=== PATIENT | female | born 1975 | race Caucasian/White ===

== ENCOUNTER → 2017-06-28 | Outpatient (CLI) | payer BC ==
--- NOTE | 2017-06-28 14:06 | US ---
EXAMINATION TYPE: US thyroid st tissue head/neck DATE OF EXAM: 06/28/2017 COMPARISON: US July 28, 2016 CLINICAL HISTORY: E04.1 THYROID NODULE. GLAND SIZE: Right Lobe: 4.2 x 1.0 x 1.2 cm Overall Parenchyma: homogenous Left Lobe: 3.5 x 1.2 x 1.1 cm Overall Parenchyma: homogeneous Isthmus Thickness: 0.3 cm NODULES RIGHT: no nodules seen LEFT: no nodules seen ISTHMUS: no nodules seen Bilateral neck scanned, no evidence of lymphadenopathy. Thyroid gland remains somewhat small in size and homogeneous in appearance without discrete nodule id entified. IMPRESSION: Stable findings, small size thyroid without suspicious nodule identified bilaterally.
== END | disposition home or self-care (01) ==
LOC: RADMAMWWP 13:22
PROVIDERS: ATTEND Internal Medicine Endocrinology, Diabetes & Metabolism
DX: E04.1 Nontoxic single thyroid nodule (principal)
CPT/HCPCS: 76536

== ENCOUNTER → 2017-06-28 | Outpatient (CLI) | payer BC ==
--- NOTE | 2017-06-29 10:28 | MM ---
Reason for exam: screening (asymptomatic). Last mammogram was performed 5 years and 7 months ago. History: Patient is nulliparous. Family history of breast cancer in paternal grandmother at age 67. Taking hormonal contraceptives for 15 years. Physical Findings: A clinical breast exam by your physician is recommended on an annual basis and results should be correlated with mammographic findings. MG Screening Mammo w CAD Bilateral CC and MLO view(s) were taken. Prior study comparison: December 09, 2011, bilateral digital screening mammo w/CAD. There are scattered fibroglandular densities. No suspicious abnormality. No significant changes when compared with prior studies. ASSESSMENT: Negative, BI-RAD 1 RECOMMENDATION: Routine screening mammogram of both breasts in 1 year.
== END | disposition home or self-care (01) ==
LOC: RADUSWWP 13:26
PROVIDERS: ATTEND Family Medicine
DX: Z12.31 Encounter for screening mammogram for malignant neoplasm of breast (principal)

== ENCOUNTER 2017-08-01 07:42 | Day surgery (SDC) | payer BC ==
[~2017-08-01 07:42] MED LIST: DEXAMETHASONE SOD PHOSPHATE 10 MG/ML 1 ML VIAL IV ONE; HEPARIN SODIUM,PORCINE 5,000 UNIT/ML 1 ML VIAL SQ ONE; MIDAZOLAM 2 MG/2 ML VIAL IV PRN; Pre Op ABX Message 1 EACH MISC MISCELLANE ONE; SCOPOLAMINE 1.5MG/72HR PATCH TRANSDERM ONE
[2017-08-01] MEDS ORDERED: FAMOTIDINE 20 MG/2 ML VIAL IV STA (08:12)
[2017-08-01] MEDS ORDERED: LIDOCAINE 1% 20 ML VIAL (10MG/ML) FOR IV START INTRADERMA ONE (08:20)
[2017-08-01] MEDS: ONDANSETRON 4 MG/2 ML VIAL IVP ONE ×2 (08:21→10:28)
[2017-08-01] MEDS: LACTATED RINGERS 1,000 ML IV SCH ×2 (08:22→08:57)
[2017-08-01] MEDS ORDERED: HEPARIN SODIUM,PORCINE 5,000 UNIT/ML 1 ML VIAL SQ ONE (08:25)
[2017-08-01] MEDS ORDERED: PROPOFOL 10 MG/ML 20 ML VIAL IV ONE (08:59)
[2017-08-01] MEDS ORDERED: LIDOCAINE 1% INJ 10MG/ML (20 ML MDV) ONE (08:59)
[2017-08-01] MEDS ORDERED: MIDAZOLAM 2 MG/2 ML VIAL ONE (08:59)
[2017-08-01] MEDS ORDERED: fentaNYL (PF) 50 MCG/ML 2 ML AMP ONE (08:59)
[2017-08-01] MEDS ORDERED: SUCCINYLCHOLINE CHLORIDE 100 MG/5 ML SYR IV ONE (08:59)
[2017-08-01] MEDS ORDERED: KETOROLAC 30 MG/ML 1 ML VIAL ONE (08:59)
[2017-08-01] MEDS ORDERED: LIDOCAINE 1% INJ 10MG/ML (20 ML MDV) SQ ONE ×2 (09:23)
--- NOTE | 2017-08-01 09:57 | P.OP ---
Date of Procedure: 08/01/17 Preoperative Diagnosis: Soft tissue mass right back Postoperative Diagnosis: Probable lipoma Procedure(s) Performed: Excision soft tissue mass right back Anesthesia: WILFRID Surgeon: Indy Jones Estimated Blood Loss (ml): 5 IV fluids (ml): 700 Pathology: other (Soft tissue mass right back) Condition: stable Disposition: same day Indications for Procedure: Enlarging soft tissue mass right back Operative Findings: Soft tissue mass 5 x 4 cm right back Description of Procedure: Patient was taken to the operating room and following induction of anesthesia she was placed in the on the left lateral side. The area of the leg was prepped and draped in a sterile fashion. An incision was made over the palpable abnormality. Superior and inferior skin flaps were developed. The palpable abnormality was removed. This was approximately 5 cm x 4 cm. It extended to the skin and subcutaneous tissue onto the muscle of the back. Several bleeders which were cauterized and tied with a stick tie of Vicryl. After assured that hemostasis was attained the tissues were mobilized the deep tissues were closed using a 3-0 Vicryl suture. Prior to this a small Pk- Ely drain was placed. The skin was then closed using 4-0 Monocryl. There was food and reinforced with a 3-0 nylon suture and the drain was secured with a nylon suture. The patient tolerated the procedure in stable condition. All instrument and sponge counts were correct at the end of the case.
--- NOTE | 2017-08-01 10:00 | P.DS ---
Providers Attending physician: Indy Jones Primary care physician: Aldair Garcia Plan - Discharge Summary Discharge Rx Participant: No New Discharge Prescriptions: No Action Levothyroxine Sodium [Synthroid] 75 tab PO QAM Ibuprofen [Motrin] 200 mg PO Q6HR PRN PRN Reason: Pain Omeprazole [Omeprazole] 20 mg PO QAM FLUoxetine HCL [PROzac] 20 mg PO HS Norgestrel-Ethinyl Estradiol [Xhd-Uitmmcsr-30 Tablet] 1 tab PO DAILY Cholecalciferol [Vitamin D3] 3,000 unit PO DAILY Discharge Medication List Levothyroxine Sodium [Synthroid] 75 tab PO QAM 06/10/14 [History] Cholecalciferol [Vitamin D3] 3,000 unit PO DAILY 07/28/17 [History] FLUoxetine HCL [PROzac] 20 mg PO HS 07/28/17 [History] Ibuprofen [Motrin] 200 mg PO Q6HR PRN 07/28/17 [History] Norgestrel-Ethinyl Estradiol [Uaw-Rvreises-84 Tablet] 1 tab PO DAILY 07/28/17 [ History] Omeprazole [Omeprazole] 20 mg PO QAM 07/28/17 [History] Follow up Appointment(s)/Referral(s): Indy Jones MD [STAFF PHYSICIAN] - 3 Days Patient Instructions/Handouts: *Surgery [facility] - Scopalamine Patch Instructions Activity/Diet/Wound Care/Special Instructions: teach louise herrera drain care, drain and record outputs twice a day and when necessary Do not drive today Do not drive if taking narcotic pain medication Discharge Disposition: HOME SELF-CARE
[2017-08-01] MEDS ORDERED: LACTATED RINGERS 1,000 ML IV ONE (10:02)
[2017-08-01 10:09] VITALS: TEMP 97.3
[2017-08-01] MEDS: HYDROmorphone 0.5 MG/0.5 ML SYRINGE IVP PRN ×2 (10:28→10:38)
[2017-08-01 12:03] VITALS: BP 125/72; PULSE 100; RESP 20
== END 2017-08-01 12:14 | disposition home or self-care (01) ==
LOC: OR 07:42
PROVIDERS: ATTEND Surgery
DX: D17.1 Benign lipomatous neoplasm of skin and subcutaneous tissue of trunk (principal); F41.9 Anxiety disorder, unspecified; K21.9 Gastro-esophageal reflux disease without esophagitis; E04.2 Nontoxic multinodular goiter; E03.9 Hypothyroidism, unspecified; E78.5 Hyperlipidemia, unspecified; E66.9 Obesity, unspecified; Z68.38 Body mass index [BMI] 38.0-38.9, adult; J30.9 Allergic rhinitis, unspecified; M54.6 Pain in thoracic spine; F39 Unspecified mood [affective] disorder; Z88.0 Allergy status to penicillin; Z79.899 Other long term (current) drug therapy; Z79.51 Long term (current) use of inhaled steroids; Z79.3 Long term (current) use of hormonal contraceptives
CPT/HCPCS: 81025; 88304; 21931; J2250; J1644; J1100; J2405; J2001; J3010; J1885; J0330; J2704; J1170

== ENCOUNTER → 2018-01-02 | Outpatient (CLI) | payer BC ==
--- NOTE | 2018-01-02 22:12 | MR ---
EXAMINATION TYPE: MR ankle LT wo con DATE OF EXAM: 01/02/2018 COMPARISON: NONE HISTORY: 42-year-old female Pain in left ankle and joints of left foot TECHNIQUE: Multiplanar, multisequence images of the left ankle were obtained without IV contrast. FINDINGS: Evaluation of the osseous structures shows a focal osteochondral lesion of the mid talar dome measuri ng approximately 1.1 cm wide and 1.4 cm AP dimension. There is irregularity of the subarticular bone plate and irregular overlying cartilage loss. No fluid signal undercutting the osteochondral lesion t o suggest an unstable fragment. Reactive marrow edema extending throughout the talar dome and neck. Nonspecific soft tissue swelling within Kager's fat could represent edema from soft tissue contusion. Achilles tendon is intact. Plantar fascia is intact. The tarsal tunnel is clear. Preserved fatty signal within the sinus tarsi with a couple small ganglio n cysts of the sinus Tarsi measuring up to 9 mm. Lisfranc ligament is intact. Mild edema along the deep posterior deltoid ligament fibers. Spring ligament complex appears intact. Mild team notified of luminal fluid along the posterior tibial tendon. Medial flexor tendons are othe rwise intact. Lateral ligamentous complex is intact. Mild tenosynovial fluid along the peroneal tendons which are i ntact. The syndesmosis appears intact and the anterior extensor tendons appear satisfactory. Some nonspecific subcutaneous soft tissue swelling along the distal leg. IMPRESSION: 1. A 1.1 x 1.4 cm osteochondral lesion of the mid medial talar dome. No findings to suggest an unstab le fragment. There is irregular thinning of the overlying articular cartilage. Associated reactive ma rrow edema within the talus. 2. Findings which may represent a low-grade deltoid ligament sprain. 3. Mild tenosynovial fluid along the posterior tibial tendon and along the peroneal tendons could be physiologic or could represent mild tenosynovitis. 4. Some edema within Kager's fat posteriorly is nonspecific and could be secondary to a soft tissue c ontusion.
== END | disposition home or self-care (01) ==
LOC: RADMRIMAIN 13:33
PROVIDERS: ATTEND Family Medicine
DX: M89.9 Disorder of bone, unspecified (principal)

== ENCOUNTER → 2019-03-08 | Outpatient (CLI) | payer BC ==
--- NOTE | 2019-03-08 14:37 | US ---
EXAMINATION TYPE: US thyroid st tissue head/neck DATE OF EXAM: 03/08/2019 COMPARISON: US CLINICAL HISTORY: E04.1 Nontoxic Single Thyroid Nodule. Pt states normal F/U GLAND SIZE: Right Lobe: 4.7 x 1.3 x 1.1 cm Overall Parenchyma: homogenous Left Lobe: 3.5 x 1.1 x 1.1 cm Overall Parenchyma: homogeneous Isthmus Thickness: 0.2 cm Bilateral neck scanned, no evidence of lymphadenopathy. Bilateral thyroid appeared wnl, unchanged fro m previous. Thyroid echotexture is homogenous and symmetric. IMPRESSION: Stable, normal thyroid ultrasound
== END | disposition home or self-care (01) ==
LOC: RADUSWWP 13:48
PROVIDERS: ATTEND Family Medicine
DX: E04.1 Nontoxic single thyroid nodule (principal)
CPT/HCPCS: 76536

== ENCOUNTER → 2020-02-25 | Outpatient (CLI) | payer BC ==
--- NOTE | 2020-02-25 15:50 | XR ---
EXAMINATION TYPE: XR ankle complete LT DATE OF EXAM: 02/25/2020 COMPARISON: None HISTORY: Left ankle sprain TECHNIQUE: Three-view left ankle FINDINGS: Ankle mortise is intact. No acute fractures or dislocations are evident. Soft tissues are n ormal. Follow-up exam can be performed 7-10 days from acute trauma for continued pain. IMPRESSION: 1. Normal three-view left ankle
== END | disposition home or self-care (01) ==
LOC: RADXRMAIN 15:23
PROVIDERS: ATTEND Family Medicine
DX: S93.402A Sprain of unspecified ligament of left ankle, initial encounter (principal)

== ENCOUNTER → 2020-11-03 | Outpatient (CLI) | payer OTHER ==
--- NOTE | 2020-11-04 08:59 | MM ---
Reason for exam: additional evaluation requested from prior study. Last mammogram was performed 3 years and 4 months ago. History: Patient is nulliparous. Family history of breast cancer in paternal grandmother at age 67. Taking hormonal contraceptives for 15 years. Physical Findings: Nurse did not find any significant physical abnormalities on exam. MG 3D Diag Mammo W/Cad ASHLY Bilateral CC and MLO view(s) were taken. Prior study comparison: June 28, 2017, bilateral MG screening mammo w CAD. December 09, 2011, bilateral digital screening mammo w/CAD. There are scattered fibroglandular densities. Stable benign calcifications. There is no discrete abnormality. No significant new findings when compared with previous films. These results were verbally communicated with the patient and result sheet given to the patient on 11/03/20. ASSESSMENT: Benign, BI-RAD 2 RECOMMENDATION: Routine screening mammogram of both breasts in 1 year. Manage patient on a clinical basis.
== END | disposition home or self-care (01) ==
LOC: RADMAMWWP 14:01
PROVIDERS: ATTEND Family Medicine
DX: N64.4 Mastodynia (principal)
CPT/HCPCS: 77066; G0279; 77062

== ENCOUNTER → 2020-12-28 | Outpatient (CLI) | payer OTHER ==
--- NOTE | 2020-12-28 13:36 | US ---
EXAMINATION TYPE: US thyroid st tissue head/neck DATE OF EXAM: 12/28/2020 COMPARISON: 03/08/2019 CLINICAL HISTORY: E04.2 Multinodular goiter. On thyroid meds. GLAND SIZE: Right Lobe: 4.1 x 1.0 x 1.3 cm Overall Parenchyma: homogenous Left Lobe: 2.9 x 1.1 x 1.1 cm Overall Parenchyma: homogeneous Isthmus Thickness: 0.2 cm NODULES RIGHT: # of nodules measured on right: 0 LEFT: # of nodules measured on left: 0 ISTHMUS: # of nodules measured in the isthmus: 0 Bilateral neck scanned, no evidence of lymphadenopathy. IMPRESSION: No distinct abnormality appreciated at this time.
== END | disposition home or self-care (01) ==
LOC: RADUSWWP 12:59
PROVIDERS: ATTEND Internal Medicine
DX: E04.2 Nontoxic multinodular goiter (principal)
CPT/HCPCS: 76536

== ENCOUNTER → 2021-06-21 | Outpatient (CLI) | payer OTHER ==
--- NOTE | 2021-06-21 15:37 | US ---
EXAMINATION TYPE: US kidneys/renal and bladder DATE OF EXAM: 06/21/2021 COMPARISON: CT CLINICAL HISTORY: N18.31 Chronic kidney disease, stage 3a. Chronic kidney disease stage 3. EXAM MEASUREMENTS: Right Kidney: 10.7 x 4.9 x 3.9 cm Left Kidney: 11.5 x 5.4 x 5.2 cm Right Kidney: No hydronephrosis or masses seen Left Kidney: Collecting system appears minimally dilated-anechoic appearance. Bladder: Limited, not fully distended. Bilateral Jets seen: Yes. IMPRESSION: Mild fullness of the left renal collecting system.
== END | disposition home or self-care (01) ==
LOC: RADUSWWP 14:52
PROVIDERS: ATTEND Internal Medicine
DX: N18.31 Chronic kidney disease, stage 3a (principal)
CPT/HCPCS: 76770

== ENCOUNTER → 2024-08-12 | Outpatient (CLI) | payer OTHER ==
--- NOTE | 2024-08-14 13:13 | US ---
EXAMINATION TYPE: US thyroid st tissue head/neck DATE OF EXAM: 08/12/2024 COMPARISON: US 2020 CLINICAL INDICATION: Female, 49 years old with history of E03.9 HYPOTHYROIDISM, UNSPECIFIED; TECHNIQUE: Grayscale and color Doppler imaging of the thyroid gland. FINDINGS: GLAND SIZE: Right Lobe: 4.1 x 1.1 x 1.2 cm Overall Parenchyma: homogeneous Left Lobe: 3.6 x 1.1 x 0.9 cm Overall Parenchyma: homogeneous Isthmus Thickness: 0.2 cm NODULES RIGHT: # of nodules measured on right: 0 LEFT: # of nodules measured on left: 0 ISTHMUS: # of nodules measured in the isthmus: 0 Bilateral neck scanned, no evidence of lymphadenopathy. IMPRESSION: Normal study 2017 ACR TI-RADS LEVEL: *Highest TI-RADS level nodule reported [email or web address] [facility], , 08/14/2024 1:11 PM
== END | disposition home or self-care (01) ==
LOC: RADUSWWP 15:10
PROVIDERS: ATTEND Family Medicine
DX: E03.9 Hypothyroidism, unspecified (principal); E04.1 Nontoxic single thyroid nodule
CPT/HCPCS: 76536